=== PATIENT | male | born 1955 | race Caucasian/White ===

== ENCOUNTER 2021-09-12 03:08 | Inpatient (IN) | payer MEDICAID ==
[~2021-09-12] VITALS: Ht 172.7 cm; Wt 61.7 kg
[2021-09-12] VITALS (22 sets, daily range): BP systolic 87–160
--- NOTE | 2021-09-12 03:12 | NUR ---
Placed in room 1 . Placed on gis application developer, blood pressure machine and pulse oximeter. To gown for exam. Side rails up. Report given to Florentino ALVARES.
[2021-09-12] MEDS ORDERED: VANCOMYCIN HCL 1,000 MG in NS 250 ML IV ONE (03:15)
[2021-09-12] MEDS ORDERED: NACL 0.9% 2,000 ML IV ONE (03:15)
[2021-09-12] MEDS ORDERED: CEFEPIME 1 GM in D5W 50 ML IV ONE (03:15)
--- NOTE | 2021-09-12 03:18 | NUR ---
DR PIERCE AT PT BEDSIDE ASSESSING
--- NOTE | 2021-09-12 03:18 | NUR ---
ER at bedside examining patient.
[2021-09-12 03:42] LABS: HEMATOCRIT 39.2 % (36-54); HEMOGLOBIN 13.1 g/dL (14.0-18.0); MEAN CORPUSCULAR HEMOGLOBIN 28 pg (27-31)
[2021-09-12] MEDS ORDERED: ACETAMINOPHEN 650 MG SUPP.RECT RC ONE (03:45)
[2021-09-12 03:48] LABS: MEAN CORPUSCULAR HGB CONC 34 % (32-36); MEAN CORPUSCULAR VOLUME 85 fL (79.0-98.0); PLATELET COUNT (AUTO) 201 K/uL (130-430); RED BLOOD CELL COUNT(AUTO) 4.63 MIL/uL (4.2-6.2); WHITE BLOOD COUNT (AUTO) 13.2 K/uL (4.8-10.8)
[2021-09-12] MEDS ORDERED: CEFEPIME 1 GM/VIAL (MAXIPIME) ONE (03:56)
[2021-09-12] MEDS ORDERED: HALOPERIDOL LACTATE 5 MG/ML VIAL IVP ONE (04:00)
[2021-09-12] MEDS ORDERED: LORazepam 2 MG/ML VIAL IVP ONE (04:00)
[2021-09-12] MEDS ORDERED: HALOPERIDOL LACTATE 5 MG/ML VIAL ONE (04:03)
[2021-09-12] MEDS ORDERED: LORazepam 2 MG/ML VIAL ONE (04:05)
[2021-09-12 04:12] LABS: BILIRUBIN,URINE NEGATIVE (NEGATIVE); BLOOD, URINE 2+ (NEGATIVE); CLARITY/URINE CLEAR (CLEAR); COLOR,URINE YELLOW (YELLOW); GLUCOSE,URINE NEGATIVE (NEGATIVE); KETONES,URINE NEGATIVE (NEGATIVE); LEUKOCYTE ESTERASE ,URINE NEGATIVE (NEGATIVE); NITRITE, URINE NEGATIVE (NEGATIVE); PH,URINE 5.5 (5.0-8.0); PROTEIN URINE 1+ (NEGATIVE)
[2021-09-12 04:13] LABS: UROBILINOGEN,URINE >=8 (0.2-1.0)
[2021-09-12 04:19] LABS: ALANINE AMINOTRANSFERASE 30 U/L (12-78); ALBUMIN 1.9 g/dL (3.4-4.8); ANION GAP 3 (5-15); ASPARTATE AMINOTRANSFERASE 30 U/L (10-37); CALCIUM 8.1 mg/dL (8.4-11.0); CHLORIDE 103 mmol/L (98-107); CREATININE 0.71 mg/dL (0.55-1.30); GLUCOSE 136 mg/dL (70-99); POTASSIUM 3.6 mmol/L (3.5-5.1); SODIUM SERUM 135 mmol/L (136-145); TOTAL BILIRUBIN 0.4 mg/dL (0.0-1.0); UREA NITROGEN, BLOOD 21 mg/dL (8-21)
[2021-09-12 04:32] LABS: GFR AFRICAN AMERICAN 144 mL/min (>90)
[2021-09-12 04:34] LABS: BACTERIA,URINE None Seen /HPF (None Seen); WBC,URINE 0-3 /HPF (0-3)
[2021-09-12 04:52] LABS: BAND % (MANUAL) 11 % (0-6); LYMPHOCYTES % (MANUAL) 9 % (20-46); MONOCYTES % (MANUAL) 5 % (0-11)
[2021-09-12 04:57] LABS: BASOPHILS % (MANUAL) 0 % (0-2); EOSINOPHILS % (MANUAL) 0 % (0-7)
[2021-09-12] MEDS ORDERED: VANCOMYCIN HCL 1000 MG/VIAL IV ONE (05:06)
[2021-09-12] MEDS ORDERED: MULT-1117 GT (05:09)
[2021-09-12] MEDS ORDERED: ASCO500T20 GT (05:09)
[2021-09-12] MEDS ORDERED: LORA-259 GT (05:09)
[2021-09-12] MEDS ORDERED: LACT10SO6 GT (05:09)
[2021-09-12] MEDS ORDERED: ONDA-8 GT (05:09)
[2021-09-12] MEDS ORDERED: HYDR-3698 GT (05:09)
[2021-09-12] MEDS ORDERED: AMIN30LI2 GT (05:09)
[2021-09-12] MEDS ORDERED: VITD2000 GT (05:09)
[2021-09-12] MEDS ORDERED: LEVE1000 GT (05:09)
[2021-09-12] MEDS ORDERED: POTA-197 GT (05:09)
[2021-09-12] MEDS ORDERED: KETOROLAC TROMETHAMINE 30 MG VIAL IVP ONE (05:30)
[2021-09-12] MEDS ORDERED: NACL 0.9% 1,000 ML IV SCH (05:45)
--- NOTE | 2021-09-12 06:23 | NUR ---
SPOKE TO DAUGHTER SIMON
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
--- NOTE | 2021-09-12 07:45 | NUR ---
RT NOTES. RN CALLED TO TRANSFER PT FROM ER TO ICU 3. NO DISTRESS NOTED DURING TRANSPORT. AIRWAY PATENT AND SECURE.
--- NOTE | 2021-09-12 08:01 | NUR ---
Patient will be admitted to care of Dr. Kraft. Admitted to ICU unit. Will go to room 3. Belongings list completed. Complete and up to date summary report printed. SBAR report to be given at bedside with opportunity for questions.
[2021-09-12] MEDS ORDERED: NALOXONE HCL 0.4 MG/ML AMP (NARCAN) IVP PRN ×3 (08:15→12:30)
[2021-09-12] MEDS ORDERED: LORazepam 2 MG/ML VIAL IVP PRN (08:15)
[2021-09-12] MEDS ORDERED: DOCUSATE SODIUM 100 MG CAPSULE PO PRN (08:15)
[2021-09-12] MEDS: NACL 0.9% 1,000 ML IV SCH ×3 (08:15→20:31)
[2021-09-12] MEDS ORDERED: MAGNESIUM SULFATE 50 ML IV PRN (08:15)
[2021-09-12] MEDS ORDERED: ZOLPIDEM TARTRATE 5 MG TABLET PO PRN (08:15)
[2021-09-12] MEDS ORDERED: MUPIROCIN 2% TOPICAL OINTMENT 22 GM NS PRN (08:15)
[2021-09-12] MEDS ORDERED: MORPHINE 2 MG/ML INJ. SYRINGE IVP PRN ×2 (08:15)
[2021-09-12] MEDS ORDERED: ONDANSETRON HCL 4 MG/2 ML VIAL IVP PRN (08:15)
[2021-09-12] MEDS ORDERED: ACETAMINOPHEN 325 MG TABLET PO PRN (08:30)
[2021-09-12] MEDS ORDERED: IPRATROPIUM/ALBUTEROL SULFATE 3 ML AMPUL.NEB (DUONEB) INH PRN (09:00)
--- NOTE | 2021-09-12 09:34 | NUR ---
NOTIFIED OF ADMISSION ORDERING PHY: REASON: ARF DIALED: [phone] SPOKE TO: CHARLY
[2021-09-12] MEDS: ENOXAPARIN SODIUM 40 MG/0.4 ML SYRINGE SUBCUT SCH (10:07)
[2021-09-12] MEDS: LACTULOSE 20 GM/30 ML UDC GT SCH (10:07)
[2021-09-12] MEDS: LevETIRAcetam 500 MG/5 ML UDC ORAL LIQUID GT SCH ×2 (10:08→20:30)
--- NOTE | 2021-09-12 10:51 | NUR ---
SPOKE WITH DR MACIAS ADVISED FAMILY STATED NECK WAS NOT SWOLLEN ON SATURDAY AND PT WAS SCHEDULED TO HAVE A CT DUE TO MASS BEHIND LEFT EAR. NECK IS SWOLLEN TODAY. ORDERED ULTRASOUND OF NECK
[2021-09-12] MEDS: PROPOFOL DRIP 100 ML IV PRN ×3 (11:12→21:55)
[2021-09-12] MEDS ORDERED: PROPOFOL DRIP 100 ML IV ONE (11:13)
--- NOTE | 2021-09-12 11:20 | NUR ---
RT NOTES RT WAS CALLED TO ICU TO ASSIST INTUBATION. DR. HEARN INTUBATED WITH A BOUJIE DUE TO DIFFICULT INTUBATION. INTUBATED WITH AN ETT 7.0 @26. WILL CONTINUE TO MONITOR.
--- NOTE | 2021-09-12 11:20 | NUR ---
PT INTUBATED BY DR HEARN 7.0 ET TUBE. 26 AT THE LIP. A/C RR22, TV 500, 100% FI02, PEEP OF 8
[2021-09-12] MEDS: PIPERACILLIN/TAZO 3.375/DEX-IS 50 ML IV SCH ×2 (11:36→17:27)
--- NOTE | 2021-09-12 11:36 | NUR ---
NOTIFIED OF CONSULT ORDERING PHY: REASON FOR CONSULT: SEPSIS, PNA DIALED: [phone] SPOKE TO: JULIET
--- NOTE | 2021-09-12 11:45 | NUR ---
HIGH ALERT NOTE: MORPHINE DRIP DR HEARN IN NURSE'S STATION. ORDERED MORPHINE DRIP AND LEVOPHED.
--- NOTE | 2021-09-12 12:00 | NUR ---
CONSULT WITH DR MALDONADO ORDERED VANCOMYCIN PHARMACY TO DOSE AND AZITHROMYCIN 500MG IV 1 TIME DOSE.
[2021-09-12] MEDS ORDERED: VECURONIUM BROMIDE 10 MG/VIAL (NORCURON) IVP PRN (12:45)
--- NOTE | 2021-09-12 12:45 | NUR ---
RT NOTES RT WAS CALLED TO ICU TO ASSIST DR HEARN IN REPOSITIONING OF ETT. ETT NEEDED ADVANCEMENT AND WAS DONE WITH ASSIST OF BRONCHOSCOPE. ADVANCEMENT WAS DIFFICULT DUE TO PT ANATOMY. CHEST XRAY SHOWS PLACEMENT STILL IN THE SAME PLACE PREVIOUS. DR STATED LONG PT IS GETTING VOLUMES AND SATURATIONS ARE GOOD THEN THE PLACEMENT IS OKAY. Addendum: 09/12/21 at 1527 by Isela Castañeda RT Amended: Links added.
[2021-09-12] MEDS: NOREPINEPHRINE BITARTRATE 8 MG in NS 242 ML IV PRN ×2 (12:47→19:54)
[2021-09-12] MEDS: MORPHINE SULFATE IN 0.9 % NACL 100 ML IV PRN (12:50)
--- NOTE | 2021-09-12 13:00 | NUR ---
RT NOTES. AIRWAY PATENT AND SECURE. ABMU BAG AT BEDSIDE. VENT PLUGGED INTO A RED OUTLET. WILL CONTINUE TO MONITOR Addendum: 09/12/21 at 1527 by Isela Castañeda RT Amended: Links added.
--- NOTE | 2021-09-12 14:23 | NUR ---
1350 STOMA LEAKING AIR. PLACED GUAZE AND FOAM DRESSING ON TOP. RN AWARE. Addendum: 09/12/21 at 1426 by Claritza Vasquez RT Amended: Links added.
[2021-09-12] MEDS ORDERED: ETOMIDATE 20 MG/ 10 ML VIAL (AMIDATE) IVP ONE (14:30)
[2021-09-12] MEDS ORDERED: ROCURONIUM BROMIDE 10 MG/ML (ZEMURON) IV ONE (14:30)
--- NOTE | 2021-09-12 16:15 | NUR ---
SPOKE WITH DR HEARN ADVISED OS MOST RECENT CHEST X-RAY RESULTS. Addendum: 09/12/21 at 1618 by Akanksha Hartman RN *OF
[2021-09-12] MEDS ORDERED: VANCOMYCIN HCL 1,000 MG in NS 250 ML IV SCH (18:00)
--- NOTE | 2021-09-12 19:07 | NUR ---
OPENING NOTES: RECEIVED BEDSIDE REPORT FROM RANCHO. PATIENT IS SEDATED AND INTUBATED TODAY. VENT SETTING ARE RESP 22, TV 500, FIO2 90%, PEEP 5. PATIENT HAS L AC 18G, R FOREARM 18G, AND PICC MATTHEW 2 LUMEN. MORPHINE RUNNING AT 4, LEVOPHED 0.31, PROPOFOL 40 AND NS 80. PATIENT HAS A NGUYEN AND DAYSHIFT GOT 1500 ML. PATIENT HAS A MASS BEHIND THE LEFT EAT AND HAS SWELLING AROUND NECK, CT SCAN IS SCHEDULED FOR TOMORROW. PATIENT HAS NO SKIN ISSUES. BED IS AT THE LOWEST LEVEL, 3 SIDE RAILS UP, BRAKES ARE LOCKED. DAUGHTER WAS AT THE BEDSIDE AND ALL QUESTION ANSWERED.
[2021-09-12] MEDS: VANCOMYCIN HCL 1,000 MG in NS 250 ML IV SCH (20:10)
[2021-09-12] MEDS ORDERED: AZITHROMYCIN 500 MG in NS 250 ML IV ONE (21:00)
[2021-09-13] VITALS (33 sets, daily range): BP systolic 87–156
[2021-09-13] MEDS: PIPERACILLIN/TAZO 3.375/DEX-IS 50 ML IV SCH ×5 (00:09→23:57)
[2021-09-13 02:32] LABS: CALCIUM 7.7 mg/dL (8.4-11.0); CREATININE 0.68 mg/dL (0.55-1.30); POTASSIUM 3.3 mmol/L (3.5-5.1)
[2021-09-13 02:37] LABS: EOSINOPHILS % (AUTO) 0.1 % (0.0-4.0); HEMOGLOBIN 10.8 g/dL (14.0-18.0); MEAN CORPUSCULAR HEMOGLOBIN 28 pg (27-31); MEAN CORPUSCULAR HGB CONC 33 % (32-36); MEAN CORPUSCULAR VOLUME 85 fL (79.0-98.0); MONOCYTES # (AUTO) 0.4 K/uL (0.0-1.0); RED BLOOD CELL COUNT(AUTO) 3.88 MIL/uL (4.2-6.2)
[2021-09-13] MEDS: POTASSIUM CHLORIDE 20 MEQ TAB.PRT.SR PO PRN ×3 (02:40→09:45)
[2021-09-13 02:50] LABS: LYMPHOCYTES # (AUTO) 0.7 K/uL (1.0-5.5); LYMPHOCYTES % (AUTO) 4.2 % (20.5-51.5); MONOCYTES % (AUTO) 2.3 % (1.7-9.3); NEUTROPHILS # (AUTO) 16.1 K/uL (1.8-7.7); NEUTROPHILS % (AUTO) 93.4 % (40.0-70.0); PLATELET COUNT (AUTO) 184 K/uL (130-430); RED CELL DISTRIBUTION WIDTH 14.8 % (9.0-15.0); WHITE BLOOD COUNT (AUTO) 17.2 K/uL (4.8-10.8)
[2021-09-13] MEDS: PROPOFOL DRIP 100 ML IV PRN ×3 (03:13→16:33)
[2021-09-13] MEDS: ACETAMINOPHEN 325 MG TABLET PO PRN ×2 (04:38→05:47)
[2021-09-13] MEDS: NOREPINEPHRINE BITARTRATE 8 MG in NS 242 ML IV PRN ×2 (05:34→08:33)
[2021-09-13] MEDS: MORPHINE SULFATE IN 0.9 % NACL 100 ML IV PRN ×2 (06:43→23:24)
--- NOTE | 2021-09-13 07:20 | NUR ---
OPENING NOTE: REPORT RC'VD FROM OUTGOING NOC RN, ALL CARES ASSUMED.
--- NOTE | 2021-09-13 07:33 | NUR ---
RT NOTES Per titration order, FIO2 to 0.80. Rn made aware. Will monitor pt.
--- NOTE | 2021-09-13 07:55 | NUR ---
VERBAL CONSENT OBTAINED FROM DAUGHTER SIMON OVER THE PHONE FOR CT WITH CONTRAST OF NECK, CONSENT WITNESSED BY SECOND RN.
[2021-09-13] MEDS ORDERED: IOHEXOL 350 mgI/mL, 150 ML INFUS..BTL IV ONE (08:06)
[2021-09-13] MEDS: ENOXAPARIN SODIUM 40 MG/0.4 ML SYRINGE SUBCUT SCH (08:12)
[2021-09-13] MEDS: LACTULOSE 20 GM/30 ML UDC GT SCH (08:12)
[2021-09-13] MEDS: LevETIRAcetam 500 MG/5 ML UDC ORAL LIQUID GT SCH ×2 (08:13→21:34)
[2021-09-13] MEDS: VANCOMYCIN HCL 1,000 MG in NS 250 ML IV SCH ×2 (08:13→21:34)
--- NOTE | 2021-09-13 08:30 | NUR ---
PATIENT TAKEN TO CT FOR IMAGING, PLACED ONTO PORTABLE MONITOR AND RT AT BEDSIDE
--- NOTE | 2021-09-13 08:45 | NUR ---
RT NOTES Transported pt to and from Ct with Rn and sales service technician. Pt. was bagged with 100% O2 with PEEP valve set to 8 via resus. bag to ETT. Once in CT and back in the unit, pt was placed on the vent. with same settings. Pt maintained sat @100% throughout procedure. A/w remains secure/patent.
--- NOTE | 2021-09-13 08:50 | NUR ---
PATIENT RETURNED FROM IMAGING, STABLE IN NO ACUTE DISTRESS AND OR DISCOMFORT.
--- NOTE | 2021-09-13 09:44 | NUR ---
POTASSIUM REPLACED WITH 40 MeQ PER ORDER
--- NOTE | 2021-09-13 09:55 | NUR ---
RT NOTES Per titration order, FIO2 to 0.80. Rn made aware. Will monitor pt. Addendum: 09/13/21 at 1036 by rPincess Validvia RT @0955 FIO2 to 0.70
--- NOTE | 2021-09-13 10:20 | NUR ---
FAMILY AT BEDSIDE, UPDATES GIVEN AND ALL QUESTIONS ANSWERED.
[2021-09-13] MEDS ORDERED: MUPIROCIN 2% TOPICAL OINTMENT 22 GM NS ONE (10:45)
--- NOTE | 2021-09-13 11:59 | NUR ---
Dietitian Recommendations * Vital AF 1.2 at 50 ml/hr (goal rate) via GT Provides (w/ current propofol infusion rate): 1900 kcal/day, 90 gm protein/day, and 973 ml free water/day Meets (w/ current propofol infusion rate): 98% of estimated caloric needs and 83% of lower end of estimated protein needs * Continue NS IV at 100 ml/hr (2400 ml/day) * If NS IV is D/C, initiate Free Water Flush: 250 ml Q6h via GT Provides: 1973 ml/day combined w/ TF rec Meets 104% of estimated fluid needs w/ TF rec LP, MS, RD Please refer to Nutrition Assessment for details. Addendum: 09/13/21 at [address] Amended: Links added. Addendum: 09/13/21 at [address] PLEASE DISREGARD NOTE AND SEE CORRECTED NOTE DIETITIAN RECOMMENDATION 09/13 1322.
--- NOTE | 2021-09-13 13:22 | NUR ---
Dietitian Recommendations * Vital AF 1.2 bolus feeds 200 ml Q4h via GT Provides (w/ current propofol infusion rate): 1900 kcal/day, 90 gm protein/day, and 973 ml free water/day Meets (w/ current propofol infusion rate): 102% of estimated caloric needs and 83% of lower end of estimated protein needs * Continue NS IV at 100 ml/hr (2400 ml/day) * If NS IV is D/C, initiate Free Water Flush: 250 ml Q6h via GT Provides: 1973 ml/day combined w/ TF rec Meets 104% of estimated fluid needs w/ TF rec LP, MS, RD Please refer to Nutrition Assessment for details. Addendum: 09/13/21 at [address] Amended: Links added.
--- NOTE | 2021-09-13 13:44 | NUR ---
RT NOTES FIO2 TO 0.50. RN MADE AWARE. WILL MONITOR PT.
--- NOTE | 2021-09-13 13:58 | NUR ---
DR. ROY PLACED ORDERS FOR EEG, EEG HAS BEEN SCHEDULED FOR 09.14.2021 AT 0900. Addendum: 09/13/21 at 1359 by [facility] Three english composition teacher WRONG CHART
--- NOTE | 2021-09-13 13:59 | NUR ---
DR. HEARN MAKING ROUNDS, BEDSIDE REPORT GIVEN. MD TO REVIEW CHART AND PLACE ORDERS.
--- NOTE | 2021-09-13 14:00 | NUR ---
RT NOTES Per RN, Dr Carlos will not advance ETT, will have pt re-trached.
--- NOTE | 2021-09-13 14:01 | NUR ---
PER PRIMARY CONSULT PLACED FOR SURGICAL CONSULT.
--- NOTE | 2021-09-13 14:09 | NUR ---
Called Angelica Donovan with a consult, spoke with Princess from doctors office
[2021-09-13] MEDS: NACL 0.9% 1,000 ML IV SCH (14:28)
--- NOTE | 2021-09-13 14:28 | NUR ---
SPOKE WITH DR. JUSITNE MD AWARE OF CONSULT AND WILL SCHEDULE PATIENT FOR TRACH PLACEMENT.
--- NOTE | 2021-09-13 15:50 | NUR ---
RT NOTES FIO2 TO 0.40. RN MADE AWARE. WILL MONITOR PT.
[2021-09-13] MEDS: NOREPINEPHRINE BITARTRATE 16 MG in NS 234 ML IV PRN (16:33)
--- NOTE | 2021-09-13 17:55 | NUR ---
RN ROUNDS: PATIENT REPOSITIONED USING PILLOW SUPPORT, HEELS FLOATING, NEW GOWN AND LINENS APPLIED, ORAL CARE PROVIDED. PATIENT TOLERATED CARES WELL WITH NO SIGNS OF DISTRESS AND OR DISCOMFORT. BED LOW AND LOCKED FOR SAFETY.
--- NOTE | 2021-09-13 17:57 | NUR ---
NGUYEN CARE PROVIDED WITH CHG WIPES
--- NOTE | 2021-09-13 19:15 | NUR ---
change of shift.pt.presents isolation status.contact;mrsa nares.pt.presents ett;#7.lipline;25cm.pt.presents picc line:location: rt.bicept intact.iv fluids/drips;diprivan:13mcg/kg/min:rate:13ml/hr.levophed:13mcg/kg/min:rate:13ml/hr.ms;6mg/hr =6ml/hr. g-tube intact g-tube feed bolus:400ml/4hrs.biggs cath intact;patent.ett/vent;vent settings;tv;500,fio2%:40%,a/c;22, peep:8.call light w/in access of the pt.
--- NOTE | 2021-09-13 20:00 | NUR ---
pt.assessed.v/s assessed values note b/p status.ett intact.i have attended to the oral/ett care/suction.02-sat%=98%. picc line intact iv fluids/drips;diprivan,levophed,ms infusing.per flacc pain mgx pt.absent facial grimaces/body posturing. pt.assessed for cleanliness.pt.repositioned.biggs cath intact.call light placed w/in access of the pt.
[2021-09-13] MEDS: MUPIROCIN 2% TOPICAL OINTMENT 22 GM NS SCH (21:00)
--- NOTE | 2021-09-13 21:00 | NUR ---
2100p medications administered.administered via the g-tube.g-tube flushed w/out resistance.per flacc pain mgx pt.absent facial grimaces/body posturing.v/s values wnl.
[2021-09-13] MEDS: AZITHROMYCIN 250 MG in NS 250 ML IV SCH (21:36)
--- NOTE | 2021-09-13 22:00 | NUR ---
pt.assessed.v/s assessed values wnl.ett intact.i have attended to the ett/oral care/suction.02-sat%=98%.picc line intact iv fluids/drips;diprivan,levophed.ms infusing.g-tube intact.biggs cath intact;patent.per flacc pain mgx pt.absent facial grimaces/body posturing.pt.assessed for cleanliness.pt.repositioned.call light placed w/in access of the pt.
[2021-09-14] VITALS (31 sets, daily range): BP systolic 99–174
--- NOTE | 2021-09-14 | NUR ---
pt.assessed.v/s assessed values wnl.note b/p status.ett intact.i have attended to the oral/ett care/suction.02-sat%=98%. picc line intact iv fluids/drip;diprivan,levophed,ms infusing.g-tube intact.per flacc pain mgx pt.absent facial grimaces/body posturing.pt.assessed for cleanliness.pt.repositioned.call light placed w/in access of the pt.
[2021-09-14] MEDS: NACL 0.9% 1,000 ML IV SCH (00:15)
--- NOTE | 2021-09-14 02:00 | NUR ---
Pt assessed. Vital signs assessed. ETT in tact. Have attended to oral and ETT care and suction. O2 sat 99%. PICC line in tact. IV fluids/drips diprovan, levofed, MS. Curtis cath in tact/patent. Per flacc pain mgx pt absent of facial gestures/body posturing. Pt assessed for cleanliness. Pt repositioned. Call light placed w/in access of pt.
--- NOTE | 2021-09-14 04:00 | NUR ---
pt.assessed.v/s assessed note b/p status.ett intact.i have attended to the oral/ett care/suction.o2-sat%=98%.picc line intact; iv fluids/drips;diprivan,levophed,ms infusing.g-tube intact.biggs cath intact;patent.per flacc pain mgx pt.absent facial grimaces/body posturing.pt.assessed for cleanliness.pt.repositioned.call light placed w/in access of the pt.
[2021-09-14] MEDS: PROPOFOL DRIP 100 ML IV PRN ×2 (04:50→07:41)
[2021-09-14] MEDS: PIPERACILLIN/TAZO 3.375/DEX-IS 50 ML IV SCH ×3 (05:25→17:05)
--- NOTE | 2021-09-14 06:30 | NUR ---
pt.assessed.v/s assessed values wnl.note b/p status.ett intact i have attended to the oral/ett care/suction.o2-sat%=99%. per flacc pain mgx pt.absent facial grimaces/body posturing.iv access intact iv fluids/drip;diprivan,levophed,ms infusing.pt. assessed for cleanliness.pt.repositioned call light placed w/in access of the pt.
[2021-09-14 06:44] LABS: BASOPHILS % (AUTO) 0.2 % (0.0-2.0); EOSINOPHILS # (AUTO) 0.2 K/uL (0.0-0.4); EOSINOPHILS % (AUTO) 0.6 % (0.0-4.0); HEMATOCRIT 30.3 % (36-54); LYMPHOCYTES # (AUTO) 1.4 K/uL (1.0-5.5); LYMPHOCYTES % (AUTO) 5.5 % (20.5-51.5); MEAN CORPUSCULAR HEMOGLOBIN 28 pg (27-31); MEAN CORPUSCULAR HGB CONC 33 % (32-36); MEAN CORPUSCULAR VOLUME 86 fL (79.0-98.0); MONOCYTES # (AUTO) 0.6 K/uL (0.0-1.0); MONOCYTES % (AUTO) 2.2 % (1.7-9.3); NEUTROPHILS # (AUTO) 23.4 K/uL (1.8-7.7); PLATELET COUNT (AUTO) 240 K/uL (130-430); RED BLOOD CELL COUNT(AUTO) 3.54 MIL/uL (4.2-6.2); WHITE BLOOD COUNT (AUTO) 25.6 K/uL (4.8-10.8)
--- NOTE | 2021-09-14 07:07 | NUR ---
OPENING NOTE: REPORT RC'VD FROM OUTGOING NOC RN, ALL CARES ASSUMED.
[2021-09-14] MEDS: VANCOMYCIN HCL 1,000 MG in NS 250 ML IV SCH ×2 (07:32→19:04)
[2021-09-14] MEDS: NOREPINEPHRINE BITARTRATE 16 MG in NS 234 ML IV PRN (07:42)
[2021-09-14 08:07] LABS: NEUTROPHILS % (AUTO) 91.5 % (40.0-70.0)
[2021-09-14 08:08] LABS: CALCIUM 8.3 mg/dL (8.4-11.0); CREATININE 0.51 mg/dL (0.55-1.30); POTASSIUM 3.6 mmol/L (3.5-5.1)
[2021-09-14] MEDS: LACTULOSE 20 GM/30 ML UDC GT SCH (08:25)
[2021-09-14] MEDS: LevETIRAcetam 500 MG/5 ML UDC ORAL LIQUID GT SCH ×2 (08:25→20:28)
[2021-09-14] MEDS: ENOXAPARIN SODIUM 40 MG/0.4 ML SYRINGE SUBCUT SCH (08:25)
--- NOTE | 2021-09-14 08:51 | NUR ---
SPOKE WITH DR. MALDONADO OVER PHONE, MD AWARE OF WBC COUNT INCREASE, MD HAS GIVEN VERBAL ORDER TO CXR TO BE DONE NOW. ORDER PLACED AND TRANSCRIBED.
[2021-09-14] MEDS: D5/0.45 NS 1,000 ML IV SCH (08:52)
[2021-09-14] MEDS: MUPIROCIN 2% TOPICAL OINTMENT 22 GM NS SCH ×2 (09:00→20:28)
--- NOTE | 2021-09-14 09:00 | NUR ---
DR. HEARN MAKING ROUNDS, BEDSIDE REPORT GIVEN, TO REVIEW CHART AND PLACE ORDERS
--- NOTE | 2021-09-14 10:00 | NUR ---
CXR DONE AT BEDSIDE
--- NOTE | 2021-09-14 11:23 | NUR ---
Nutrition Consult received 09/14/21 @ 0350 Consult is for low Maicol, immobile patient, on vent. RD completed NC and RD notification on 08/15. RD aware of pt status and will continue to f/u with pt. Next RD visit scheduled for 09/16/21. Please refer to most recent Nutrition Assessment for more detailed information. Thanks! HILL, SUDHIR, PENG Addendum: 09/14/21 at [address] Note: RD assessment was completed on *09/14, linked note was completed by Adri Cage
--- NOTE | 2021-09-14 11:26 | NUR ---
DR. OROZCO MADE AWARE OF CONSULT, TO COME SEE PATIENT AT BEDSIDE.
--- NOTE | 2021-09-14 11:35 | NUR ---
RT NOTES PEEP was changed to [address] atkins.
--- NOTE | 2021-09-14 14:52 | NUR ---
NGUYEN CARE PROVIDED WITH CHG WIPES
[2021-09-14] MEDS: MORPHINE SULFATE IN 0.9 % NACL 100 ML IV PRN (15:07)
--- NOTE | 2021-09-14 18:56 | NUR ---
CLOSING NOTE: REPORT GIVEN TO NOC RN, ALL CARES ENDORSED.
[2021-09-14] MEDS ORDERED: AZITHROMYCIN 500 MG/VIAL (ZITHROMAX) IV ONE (20:24)
[2021-09-14] MEDS: AZITHROMYCIN 250 MG in NS 250 ML IV SCH (20:29)
[2021-09-15] VITALS (33 sets, daily range): BP systolic 107–166
[2021-09-15] MEDS: PIPERACILLIN/TAZO 3.375/DEX-IS 50 ML IV SCH ×4 (00:16→17:26)
[2021-09-15] MEDS: PROPOFOL DRIP 100 ML IV PRN (02:23)
[2021-09-15] MEDS: D5/0.45 NS 1,000 ML IV SCH (02:24)
--- NOTE | 2021-09-15 05:00 | NUR ---
REMAINS VERY CRITICAL ON 3 PRESSORS ALL MAX DOSE,,TURN AND REPOSITION TO COMFORT, SACROCOCCYX WITH UNSTAGEABLE PHOTO TAKEN.,CXR TAKEN ETT PULEED OUT 2CM OUT ETT SIZE 7.5 AT 22 LP. ABG COMPENSATED METABOLIC ACIDOSIS,FIO2-DOWN TO 70% Addendum: 09/15/21 at 0656 by Jimmie Chavez RN ERROR CHARTED ON WRONG PATIENT
[2021-09-15 06:25] LABS: BASOPHILS % (AUTO) 0.4 % (0.0-2.0); EOSINOPHILS # (AUTO) 0.2 K/uL (0.0-0.4); HEMATOCRIT 30.7 % (36-54); HEMOGLOBIN 10.1 g/dL (14.0-18.0); LYMPHOCYTES # (AUTO) 1.3 K/uL (1.0-5.5); LYMPHOCYTES % (AUTO) 11.3 % (20.5-51.5); MEAN CORPUSCULAR HEMOGLOBIN 28 pg (27-31); MEAN CORPUSCULAR HGB CONC 33 % (32-36); MEAN CORPUSCULAR VOLUME 86 fL (79.0-98.0); MONOCYTES # (AUTO) 0.4 K/uL (0.0-1.0); NEUTROPHILS # (AUTO) 9.7 K/uL (1.8-7.7); NEUTROPHILS % (AUTO) 83.3 % (40.0-70.0); PLATELET COUNT (AUTO) 185 K/uL (130-430); RED BLOOD CELL COUNT(AUTO) 3.57 MIL/uL (4.2-6.2); RED CELL DISTRIBUTION WIDTH 15.4 % (9.0-15.0); WHITE BLOOD COUNT (AUTO) 11.6 K/uL (4.8-10.8)
--- NOTE | 2021-09-15 06:32 | NUR ---
REMAINS HYPOTENSIVE. EFRA CORTES CALL. Addendum: 09/15/21 at 0656 by Jimmie Chavez RN ERROR CHARTED ON WRONG PATIENT
[2021-09-15 06:52] LABS: CREATININE 0.5 mg/dL (0.55-1.30); POTASSIUM 3.1 mmol/L (3.5-5.1)
[2021-09-15] MEDS: VANCOMYCIN HCL 1,000 MG in NS 250 ML IV SCH ×2 (08:11→19:55)
[2021-09-15] MEDS: LevETIRAcetam 500 MG/5 ML UDC ORAL LIQUID GT SCH ×2 (08:12→21:39)
[2021-09-15] MEDS: LACTULOSE 20 GM/30 ML UDC GT SCH (08:13)
[2021-09-15] MEDS: ENOXAPARIN SODIUM 40 MG/0.4 ML SYRINGE SUBCUT SCH (08:14)
--- NOTE | 2021-09-15 08:45 | NUR ---
RT NOTES Leak cont. to be observed intermittently from a/w, especially when pt's neck is hyperextended. Pt. is schedule for trach today per RN.
[2021-09-15] MEDS: MUPIROCIN 2% TOPICAL OINTMENT 22 GM NS SCH ×2 (09:00→21:40)
[2021-09-15] MEDS: MORPHINE SULFATE IN 0.9 % NACL 100 ML IV PRN (10:15)
[2021-09-15] MEDS: POTASSIUM CHLORIDE 20 MEQ TAB.PRT.SR PO PRN (10:45)
--- NOTE | 2021-09-15 15:13 | NUR ---
Wound Evaluation: Wound Consult ordered for Low Maicol Score. Patient evaluated for a low Maicol score of 10. Patient was sedated and received in a Angelique Bed with an Isoflex ESTEBAN mattress. Patient needs to be turned in bed. Skin assessment: 1. Sacral-Coccygeal area: Erythema, present on admission. Recommend: Cover site with sacral foam dressing for protection. If soiled cleanse involved areas with mild soap and water. Apply moisture barrier cream around foam dressing. Perform dressing change daily and as needed for dressing soiling or dislodgment. Perform barrier cream application 4 times daily and as needed for soiling. 2. Right Heel: Erythema, present on admission. Recommend: Cover bilateral heels with foam dressings for protection. Elevate, offload and float bilateral heels with 1 pillow lengthwise under each extremity at all times. Recommend reposition patient side to side only every 2 hours with pillow support. Elevate, off-load and float bilateral heels with pillows. Offload pressure areas with pillows for pressure re-distribution. Perform skin care and monitor skin integrity Q shift. Use moisture barrier cream on moisture susceptible areas QID and PRN for soiling. Initiate low air-loss therapy by adding an air pump to the mattress.
[2021-09-15] MEDS ORDERED: PROPOFOL 200MG/ 20ML VIAL (DIPRIVAN) IV ONE (15:20)
[2021-09-15] MEDS ORDERED: NS IRRIG SOLN 1000 ML IR ONE (15:20)
[2021-09-15] MEDS ORDERED: NS 1000 ML IV.SOLN IV ONE (15:20)
[2021-09-15] MEDS ORDERED: LIDOCAINE 1% 10 MG/ML, 20 ML MDV ONE (15:20)
--- NOTE | 2021-09-15 15:29 | NUR ---
Patient off unit to surgery accompanied by RT, RN, Dr. Kaplan, and PA. Consent forms signed, pre-op checklist done.
[2021-09-15] MEDS ORDERED: D5W 1,000 ML IV SCH (16:45)
--- NOTE | 2021-09-15 19:05 | NUR ---
assumed care, recd report iris Levy RN for continuity of care.Initial assessment completed. see assessment sheet.
[2021-09-15] MEDS ORDERED: AZITHROMYCIN 500 MG/VIAL (ZITHROMAX) IV ONE (20:50)
[2021-09-15] MEDS: AZITHROMYCIN 250 MG in NS 250 ML IV SCH (21:40)
[2021-09-16] VITALS (30 sets, daily range): BP systolic 102–144
[2021-09-16] MEDS: PIPERACILLIN/TAZO 3.375/DEX-IS 50 ML IV SCH ×4 (01:12→23:54)
--- NOTE | 2021-09-16 02:00 | NUR ---
off levophed and morphine wean to 1 mg/hr.
--- NOTE | 2021-09-16 03:30 | NUR ---
Morning care done, CHG bath given,oral care, pericare and trache care and skin care done, turn and reposition to comfort.done, suctioned secretions moderate thick red bloody to stained pink secretions.continue care.
[2021-09-16] MEDS ORDERED: MEROPENEM 1 GM VIAL IV ONE (04:39)
--- NOTE | 2021-09-16 05:30 | NUR ---
s/B Dr. wu no new orders made. Addendum: 09/16/21 at 0733 by Jimmie Chavez RN Made him aware sputum c/s results came back positive for E.coli and ESBL no new orders.
[2021-09-16 07:18] LABS: BASOPHILS % (AUTO) 0.3 % (0.0-2.0); EOSINOPHILS # (AUTO) 0.1 K/uL (0.0-0.4); EOSINOPHILS % (AUTO) 0.9 % (0.0-4.0); HEMATOCRIT 27.6 % (36-54); HEMOGLOBIN 9.5 g/dL (14.0-18.0); LYMPHOCYTES # (AUTO) 0.8 K/uL (1.0-5.5); LYMPHOCYTES % (AUTO) 10.8 % (20.5-51.5); MEAN CORPUSCULAR HEMOGLOBIN 29 pg (27-31); MEAN CORPUSCULAR HGB CONC 34 % (32-36); MEAN CORPUSCULAR VOLUME 84 fL (79.0-98.0); MONOCYTES # (AUTO) 0.3 K/uL (0.0-1.0); MONOCYTES % (AUTO) 4.2 % (1.7-9.3); NEUTROPHILS # (AUTO) 6.5 K/uL (1.8-7.7); NEUTROPHILS % (AUTO) 83.8 % (40.0-70.0); PLATELET COUNT (AUTO) 212 K/uL (130-430); RED BLOOD CELL COUNT(AUTO) 3.29 MIL/uL (4.2-6.2); RED CELL DISTRIBUTION WIDTH 15.1 % (9.0-15.0); WHITE BLOOD COUNT (AUTO) 7.8 K/uL (4.8-10.8)
[2021-09-16 07:28] LABS: CALCIUM 7.3 mg/dL (8.4-11.0); CREATININE 0.46 mg/dL (0.55-1.30)
--- NOTE | 2021-09-16 07:33 | NUR ---
reort given to Harjeet ALVARES for continuity of care day shift
[2021-09-16] MEDS: VANCOMYCIN HCL 1,000 MG in NS 250 ML IV SCH ×2 (08:38→21:16)
[2021-09-16 09:02] LABS: POTASSIUM 2.5 mmol/L (3.5-5.1)
[2021-09-16] MEDS: LACTULOSE 20 GM/30 ML UDC GT SCH (09:17)
[2021-09-16] MEDS: POTASSIUM CHLORIDE 20 MEQ TAB.PRT.SR PO PRN (09:18)
[2021-09-16] MEDS: MUPIROCIN 2% TOPICAL OINTMENT 22 GM NS SCH ×2 (09:19→21:15)
[2021-09-16] MEDS: ENOXAPARIN SODIUM 40 MG/0.4 ML SYRINGE SUBCUT SCH (09:20)
[2021-09-16] MEDS: LevETIRAcetam 500 MG/5 ML UDC ORAL LIQUID GT SCH ×2 (09:20→21:14)
[2021-09-16] MEDS: KCL 40 mEq in D5W 1000 mL 1,000 ML IV SCH (11:00)
--- NOTE | 2021-09-16 13:15 | NUR ---
Nutrition F/U Admitting Diagnosis Acute respiratory failure Reviewed Pertinent Medical/Surgical Hx Medical Record Patient Primary RN Medical History Comment: PMH: TBI, seizure disorder, bedbound, chronic dysphagia/GT, respiratory failure, and sacral ulcerations per physician notes Pt also found w/ sepsis, aspiration pneumonia, possible UTI, severe malnutrition, and lactic acidosis per physician notes Per RD chart review 09/16: pt is s/p tracheostomy 09/15 Subjective Information: RD rounded to ICU this afternoon. Witnessed TF infusing via GT Vital AF 1.2 at 50 ml/hr w/ 31 ml infused, providing 37 kcal. No active TF order at time of RD visit. Primary RN reported that pt's TF was resumed after trach placement yesterday. He stated pt appears to be tolerating TF well; no BM yet today. Per EMR review, pt is trach to vent; obtunded; abd is soft and non-distended w/ hypoactive bowel sounds; LBM x1 09/13 (3 days ago). Current TF prescription remains adequate/appropriate. Current Diet Order/Nutrition Support: NPO x1 day Patient/Significant Other Unble To Verbalize Education Provided Not Indicated Pertinent Medications: vancomycin, morphine, propofol at 13.064 ml/hr (345 kcal/day), lactulose, levophed, piperacillin/tazobactam, lovenox, k-dur, KCl/NS at 60 ml/hr Pertinent Labs: WBC 7.8 WNL, K 2.5 L, HgA1c 5.4 WNL, BG 98 WNL, Na 147 H, CRE 0.46 L Height (Feet) 5 feet Height (Inches) 8.00 inches Weight (Pounds) 136 pounds -- stable since 09/13 Patient Weight 61.689 kg Body Mass Index 20.68 kg/m2 (normal) Usual Weight 165 lbs %UBW 82 %IBW 85 Warriors Mark/Adjusted Body Weight 160#/72.7 kg Recent Weight Change Yes - 29# wt loss/18% wt change within 4 mo Weight Status Appropriate Difficulty With: Chewing Swallowing Food Allergies No Usual Diet At Home Continuous and bolus feeds over the span of 1.5 mo per daughter Skin Integrity Comment: Maicol scale: 11 -- no PIs noted per EMR review NEW Estimated Energy Expenditure (kcals/day) 1678 (PSU 2002b d/t critical illness, trach/vent; Ve: 11.3, Tmax: 37.2'C) Estimated Protein Required (g/day) 109-145 (1.5-2 gm/kg IBW d/t sepsis, critical illness, wt gain promotion) NEW Estimated Fluid Required (l/day) 1.7 (1 ml/kcal/day for maintenance) Problem/Etiology/Signs/Symptoms Increased nutritional needs R/T metabolic demands AEB estimated nutritional requirements for sepsis. *Ongoing Risk for malnutrition R/T unintentional wt loss AEB 29# wt loss/18% wt change within 4 mo. *Ongoing Expected Outcomes/Goals - Monitor provision of EN support w/ goal of pt meeting >80% of estimated nutritional needs, labs trending WNL, normal GI function, and skin integrity/wt maintenance Dietitian Recommendations * Vital AF 1.2 at 50 ml/hr (goal rate), Free Water Flush: 250 ml Q6h via GT Provides (w/ current propofol infusion rate): 1785 kcal/day, 90 gm protein/day, and 1973 ml free water/day Meets (w/ current propofol infusion rate): 106% of estimated caloric needs, 83% of lower end of estimated protein needs, and 116% of estimated fluid needs Follow Up High Risk: F/U in 2-3 days
--- NOTE | 2021-09-16 13:25 | NUR ---
Dietitian Recommendations * Vital AF 1.2 at 50 ml/hr (goal rate), Free Water Flush: 250 ml Q6h via GT Provides (w/ current propofol infusion rate): 1785 kcal/day, 90 gm protein/day, and 1973 ml free water/day Meets (w/ current propofol infusion rate): 106% of estimated caloric needs, 83% of lower end of estimated protein needs, and 116% of estimated fluid needs LP, MS, RD Please refer to Nutrition F/U for details.
--- NOTE | 2021-09-16 21:12 | NUR ---
TRACHEAL SUCTION upright position moderate amount of thick bates sputum RESPIRATIONS REMAIN REGULAR also unlabored continue to monitor / .
[2021-09-16] MEDS: AZITHROMYCIN 250 MG in NS 250 ML IV SCH (21:17)
--- NOTE | 2021-09-16 22:37 | NUR ---
Reposition & Turning off loading with pillows comfort measures implemented , no SOB noted also kept clean also dry as needed position change on schedule tolerated / .
[2021-09-17] VITALS (30 sets, daily range): BP systolic 118–159
--- NOTE | 2021-09-17 01:14 | NUR ---
MORPHINE DRIP continued 0.5 MG / HR Respirations Remain Regular also unlabored HOB elevated skin dry warm 02 SAT 96 %
[2021-09-17] MEDS: PIPERACILLIN/TAZO 3.375/DEX-IS 50 ML IV SCH ×3 (06:00→17:25)
[2021-09-17] MEDS: KCL 40 mEq in D5W 1000 mL 1,000 ML IV SCH ×2 (06:00→17:27)
[2021-09-17 07:01] LABS: BASOPHILS % (AUTO) 0.2 % (0.0-2.0); EOSINOPHILS # (AUTO) 0.1 K/uL (0.0-0.4); HEMATOCRIT 28.9 % (36-54); HEMOGLOBIN 9.8 g/dL (14.0-18.0); LYMPHOCYTES # (AUTO) 1.4 K/uL (1.0-5.5); LYMPHOCYTES % (AUTO) 17.1 % (20.5-51.5); MEAN CORPUSCULAR HEMOGLOBIN 29 pg (27-31); MEAN CORPUSCULAR HGB CONC 34 % (32-36); MEAN CORPUSCULAR VOLUME 84 fL (79.0-98.0); MONOCYTES # (AUTO) 0.4 K/uL (0.0-1.0); NEUTROPHILS # (AUTO) 6.2 K/uL (1.8-7.7); NEUTROPHILS % (AUTO) 76.7 % (40.0-70.0); PLATELET COUNT (AUTO) 237 K/uL (130-430); RED BLOOD CELL COUNT(AUTO) 3.43 MIL/uL (4.2-6.2); RED CELL DISTRIBUTION WIDTH 14.7 % (9.0-15.0); WHITE BLOOD COUNT (AUTO) 8.1 K/uL (4.8-10.8)
[2021-09-17 07:51] LABS: CALCIUM 7.3 mg/dL (8.4-11.0); CREATININE 0.42 mg/dL (0.55-1.30)
[2021-09-17] MEDS: VANCOMYCIN HCL 1,000 MG in NS 250 ML IV SCH ×2 (08:18→20:59)
[2021-09-17] MEDS: LevETIRAcetam 500 MG/5 ML UDC ORAL LIQUID GT SCH ×2 (08:31→21:00)
[2021-09-17] MEDS: LACTULOSE 20 GM/30 ML UDC GT SCH (08:32)
[2021-09-17] MEDS: ENOXAPARIN SODIUM 40 MG/0.4 ML SYRINGE SUBCUT SCH (08:32)
[2021-09-17 08:43] LABS: POTASSIUM 2.9 mmol/L (3.5-5.1)
[2021-09-17] MEDS: POTASSIUM CHLORIDE 20 MEQ TAB.PRT.SR PO PRN (09:41)
[2021-09-17] MEDS: MUPIROCIN 2% TOPICAL OINTMENT 22 GM NS SCH ×2 (09:42→21:01)
[2021-09-17] MEDS ORDERED: POTASSIUM CHLORIDE 20 MEQ/PKT PACKET NG ONE (12:30)
[2021-09-17] MEDS: AZITHROMYCIN 250 MG in NS 250 ML IV SCH (21:01)
[2021-09-18] VITALS (33 sets, daily range): BP systolic 118–176
[2021-09-18] MEDS: PIPERACILLIN/TAZO 3.375/DEX-IS 50 ML IV SCH (01:03)
[2021-09-18] MEDS: MEROPENEM 1 GM in NS 100 ML IV SCH ×3 (06:10→23:58)
[2021-09-18 07:38] LABS: CALCIUM 7.1 mg/dL (8.4-11.0); CREATININE 0.5 mg/dL (0.55-1.30); POTASSIUM 3.1 mmol/L (3.5-5.1)
[2021-09-18 07:50] LABS: BASOPHILS % (AUTO) 0.6 % (0.0-2.0); EOSINOPHILS # (AUTO) 0.1 K/uL (0.0-0.4); EOSINOPHILS % (AUTO) 1.6 % (0.0-4.0); HEMATOCRIT 27.2 % (36-54); HEMOGLOBIN 9.3 g/dL (14.0-18.0); LYMPHOCYTES # (AUTO) 1.4 K/uL (1.0-5.5); MEAN CORPUSCULAR HEMOGLOBIN 29 pg (27-31); MEAN CORPUSCULAR HGB CONC 34 % (32-36); MEAN CORPUSCULAR VOLUME 84 fL (79.0-98.0); MONOCYTES # (AUTO) 0.3 K/uL (0.0-1.0); MONOCYTES % (AUTO) 4.1 % (1.7-9.3); NEUTROPHILS # (AUTO) 5.4 K/uL (1.8-7.7); NEUTROPHILS % (AUTO) 74.7 % (40.0-70.0); PLATELET COUNT (AUTO) 275 K/uL (130-430); RED BLOOD CELL COUNT(AUTO) 3.24 MIL/uL (4.2-6.2); RED CELL DISTRIBUTION WIDTH 14.6 % (9.0-15.0); WHITE BLOOD COUNT (AUTO) 7.2 K/uL (4.8-10.8)
[2021-09-18] MEDS: LACTULOSE 20 GM/30 ML UDC GT SCH (09:04)
[2021-09-18] MEDS: VANCOMYCIN HCL 1,000 MG in NS 250 ML IV SCH ×2 (09:04→20:05)
[2021-09-18] MEDS: LevETIRAcetam 500 MG/5 ML UDC ORAL LIQUID GT SCH ×2 (09:05→20:05)
[2021-09-18] MEDS: ENOXAPARIN SODIUM 40 MG/0.4 ML SYRINGE SUBCUT SCH (09:06)
[2021-09-18] MEDS: MUPIROCIN 2% TOPICAL OINTMENT 22 GM NS SCH ×2 (09:09→20:06)
[2021-09-18] MEDS: KCL 40 mEq in D5W 1000 mL 1,000 ML IV SCH (14:09)
[2021-09-18] MEDS: MORPHINE SULFATE IN 0.9 % NACL 100 ML IV PRN (18:17)
--- NOTE | 2021-09-18 19:05 | NUR ---
ASSUMED CARE RECD REPORT FROM BLADIMIR ALVARES FOR CONTINUITY OF CARE.
[2021-09-19] VITALS (8 sets, daily range): BP systolic 106–142
--- NOTE | 2021-09-19 00:48 | NUR ---
DR. ARMANDO GOMES OKAYED TRANSFER OF PT TO TELE AT THIS TIME. WILL CARRY OUT ORDERED.
--- NOTE | 2021-09-19 01:00 | NUR ---
CALLED DR MONDRAGON FOR TRANSFER TO [facility].
--- NOTE | 2021-09-19 01:15 | NUR ---
REPORT GIVEN TO REGGIE ALVARES FOR CONTINUITY OF CARE.TRANSFER VIA BED UNEVENTFUL.
--- NOTE | 2021-09-19 01:33 | NUR ---
RT NOTES TRANSFERRED PT TO [email or web address]. TRANSFERRED WITH 100%FIO2 VIA [facility]BU BAG. PLACE ON VENT WITH CURRENT SETTINGS. NO SOB NOTED. TRACH IS SECURE AND INTACT. Addendum: 09/19/21 at 0209 by Kaleb James RT Amended: Links added.
[2021-09-19] MEDS: KCL 40 mEq in D5W 1000 mL 1,000 ML IV SCH ×2 (04:10→20:35)
[2021-09-19] MEDS: MEROPENEM 1 GM in NS 100 ML IV SCH ×3 (06:27→21:09)
[2021-09-19 07:43] LABS: BASOPHILS % (AUTO) 0.4 % (0.0-2.0); EOSINOPHILS # (AUTO) 0.1 K/uL (0.0-0.4); EOSINOPHILS % (AUTO) 2.4 % (0.0-4.0); HEMATOCRIT 29.5 % (36-54); LYMPHOCYTES # (AUTO) 1.1 K/uL (1.0-5.5); LYMPHOCYTES % (AUTO) 18.2 % (20.5-51.5); MEAN CORPUSCULAR HEMOGLOBIN 28 pg (27-31); MEAN CORPUSCULAR HGB CONC 34 % (32-36); MEAN CORPUSCULAR VOLUME 84 fL (79.0-98.0); MONOCYTES # (AUTO) 0.4 K/uL (0.0-1.0); NEUTROPHILS # (AUTO) 4.3 K/uL (1.8-7.7); PLATELET COUNT (AUTO) 330 K/uL (130-430); RED BLOOD CELL COUNT(AUTO) 3.53 MIL/uL (4.2-6.2); RED CELL DISTRIBUTION WIDTH 14.7 % (9.0-15.0); WHITE BLOOD COUNT (AUTO) 5.9 K/uL (4.8-10.8)
[2021-09-19 08:32] LABS: ALBUMIN 1.2 g/dL (3.4-4.8); CALCIUM 7.4 mg/dL (8.4-11.0); CREATININE 0.51 mg/dL (0.55-1.30); POTASSIUM 3.3 mmol/L (3.5-5.1); TOTAL BILIRUBIN 0.3 mg/dL (0.0-1.0)
[2021-09-19] MEDS: LACTULOSE 20 GM/30 ML UDC GT SCH (10:30)
[2021-09-19] MEDS: ENOXAPARIN SODIUM 40 MG/0.4 ML SYRINGE SUBCUT SCH (10:32)
[2021-09-19] MEDS: LevETIRAcetam 500 MG/5 ML UDC ORAL LIQUID GT SCH ×2 (10:33→21:09)
[2021-09-19] MEDS: VANCOMYCIN HCL 1,000 MG in NS 250 ML IV SCH (10:34)
--- NOTE | 2021-09-19 11:54 | NUR ---
Discharge Planning: DCP faxed pt referral to [facility] [phone] DCP to follow up
[2021-09-19] MEDS: MUPIROCIN 2% TOPICAL OINTMENT 22 GM NS SCH ×2 (15:06→21:00)
[2021-09-19] MEDS: POTASSIUM CHLORIDE 20 MEQ TAB.PRT.SR PO PRN (16:05)
[2021-09-19] MEDS: ACETAMINOPHEN 325 MG TABLET PO PRN (16:05)
--- NOTE | 2021-09-19 19:15 | NUR ---
handoff has been given to Kassy
--- NOTE | 2021-09-19 19:30 | NUR ---
Opening note Received report from day shift. Pt lying in bed, eyes closed. Breathing even and unlabored on vent. No s/s of respiratory distress. MATTHEW midline intact and patent with fluids running at ordered rate. Tube feeding running at ordered rate. Curtis catheter intact draining by gravity. Fall and safety precautions in place with bed in lowest position, bed alarm on, and call light within reach
[2021-09-20] VITALS: BP_SYST 105
--- NOTE | 2021-09-20 00:22 | NUR ---
Rounds Pt lying comfortably in bed. No s/s of acute distress. Fall and safety checks in place
[2021-09-20] MEDS: MEROPENEM 1 GM in NS 100 ML IV SCH ×3 (06:14→21:10)
--- NOTE | 2021-09-20 07:04 | NUR ---
Closing note Pt lying in bed, eyes closed. Breathing even and unlabored on vent. No s/s of respiratory distress. MATTHEW midline intact and patent with fluids running at ordered rate. Tube feeding running at ordered rate. Curtis catheter intact draining by gravity. Fall and safety precautions in place with bed in lowest position, bed alarm on, and call light within reach. All needs met throughout shift.
[2021-09-20 07:59] LABS: BASOPHILS % (AUTO) 0.4 % (0.0-2.0); EOSINOPHILS # (AUTO) 0.1 K/uL (0.0-0.4); EOSINOPHILS % (AUTO) 2.5 % (0.0-4.0); HEMATOCRIT 27.4 % (36-54); HEMOGLOBIN 9.1 g/dL (14.0-18.0); LYMPHOCYTES # (AUTO) 1.2 K/uL (1.0-5.5); LYMPHOCYTES % (AUTO) 24.7 % (20.5-51.5); MEAN CORPUSCULAR HEMOGLOBIN 28 pg (27-31); MEAN CORPUSCULAR HGB CONC 33 % (32-36); MEAN CORPUSCULAR VOLUME 85 fL (79.0-98.0); MONOCYTES # (AUTO) 0.4 K/uL (0.0-1.0); NEUTROPHILS # (AUTO) 3.3 K/uL (1.8-7.7); NEUTROPHILS % (AUTO) 65.4 % (40.0-70.0); PLATELET COUNT (AUTO) 333 K/uL (130-430); RED BLOOD CELL COUNT(AUTO) 3.22 MIL/uL (4.2-6.2); RED CELL DISTRIBUTION WIDTH 15.1 % (9.0-15.0)
[2021-09-20 08:25] VITALS: BP_SYST 110
[2021-09-20] MEDS: ENOXAPARIN SODIUM 40 MG/0.4 ML SYRINGE SUBCUT SCH (09:37)
[2021-09-20] MEDS: LACTULOSE 20 GM/30 ML UDC GT SCH (09:37)
[2021-09-20] MEDS: LevETIRAcetam 500 MG/5 ML UDC ORAL LIQUID GT SCH ×2 (09:39→21:00)
[2021-09-20] MEDS: MUPIROCIN 2% TOPICAL OINTMENT 22 GM NS SCH ×2 (09:42→21:07)
[2021-09-20 10:00] VITALS: BP_SYST 110
[2021-09-20] MEDS: VANCOMYCIN HCL 1,000 MG in NS 250 ML IV SCH ×2 (10:40→21:08)
--- NOTE | 2021-09-20 12:39 | NUR ---
Discharge Planning: DCP faxed pt DC order for [facility] to [facility] F#[phone] and to [facility] P#[phone] F#[phone] DCP to follow up Addendum: 09/20/21 at 1344 by Maryse Washburn RN Per steph [facility] declined due to not contracted with [facility]. Addendum: 09/20/21 at 1636 by Ramona TERRELL DCP faxed pt referral to [facility] [place] for sub acute.
[2021-09-20] MEDS: KCL 40 mEq in D5W 1000 mL 1,000 ML IV SCH (13:15)
--- NOTE | 2021-09-20 13:44 | NUR ---
DISCHARGE PLANNING Order for LTAC eval, barriers: weak criteria & insurance. Called & spoke with dtr Sruthi Oquendo, ph [phone], agreeable with LTAC with preference for [facility]. Informed may not get accepted then plan for subacute. Agrees with plan for subacute. Pt was at [facility](decannulated from trach couple weeks ago at [facility]) now trach replaced and on Vent. Would prefer a different subacute, [facility] or one in [place]. If not accepted or no bed at other subacute would be agreeable with discharge back to [facility]. Updated dc marketing planner.
[2021-09-20 13:56] VITALS: BP_SYST 116
[2021-09-20 16:22] VITALS: BP_SYST 128
--- NOTE | 2021-09-20 16:22 | NUR ---
Nutrition F/U Admitting Diagnosis Acute respiratory failure Reviewed Pertinent Medical/Surgical Hx Medical Record Medical History Comment: PMH: TBI, seizure disorder, bedbound, chronic dysphagia/GT, respiratory failure, and sacral ulcerations per physician notes - Pt also found w/ sepsis, aspiration pneumonia, possible UTI, severe malnutrition, and lactic acidosis per physician notes - Per RD chart review 09/16: pt is s/p tracheostomy 09/15 Subjective Information: Patient seen at bedside intubated and sedated, trach to vent with TF running @ 50mL goal rate. Patient has been on vent since 09/13. Per MD notes, patient is off pressors with mild sedation. Per EMR, patient tolerating TF with GRV noted at 12mL, tolerating well; 2 x BM documented 09/20. Patient receiving IVF with D5 and K @ 60mL. CM working on plans to d/c patient to LTC or Subacute facility. Current Diet Order/Nutrition Support: NPO/TF x 6 days Vital AF @ 50mL x 24 hr: Provides 1400 kcal, 90g protein, 973mL FW Patient/Significant Other Unble To Verbalize Education Provided Not Indicated Pertinent Medications: abx, morphine, lactulose, keppra, k-dur, KCl/NS at 60 ml/hr Pertinent Labs: RBC 3.2 L, K 3.3 L (improving), H/H 10/19/26.4 L, HgA1c 5.4 WNL, Na WNL (improved), CRE 0.51 L, Ca 7.4 L Height (Feet) 5 feet Height (Inches) 8.00 inches Weight (Pounds) 136 pounds -- stable since 09/13 Patient Weight 61.689 kg Body Mass Index 20.68 kg/m2 (normal) Usual Weight 165 lbs %UBW 82 %IBW 85 [place]/Adjusted Body Weight 160#/72.7 kg Recent Weight Change Yes - 29# wt loss/18% wt change within 4 mo Weight Status Appropriate Difficulty With: Chewing Swallowing Food Allergies nkfa Usual Diet At Home Continuous and bolus feeds over the span of 1.5 mo per daughter Skin Integrity Comment: Maicol scale: 10 -- coccyx skin tear; heel erythema NEW Estimated Energy Expenditure (kcals/day) 1678 (PSU 2002b d/t critical illness, trach/vent; Ve: 11.3, Tmax: 37.2'C) Estimated Protein Required (g/day) 109-145 (1.5-2 gm/kg IBW d/t sepsis, critical illness, wt gain promotion) NEW Estimated Fluid Required (l/day) 1.7 (1 ml/kcal/day for maintenance) Problem/Etiology/Signs/Symptoms -Inadequate oral intake r/t discontinued propofol a/e/b current TF regimen meets ~83% kcal and 82% lower range of protein needs. *New -Increased nutritional needs R/T metabolic demands AEB estimated nutritional requirements for trach/vent. *Ongoing -Risk for malnutrition R/T unintentional wt loss AEB 29# wt loss/18% wt change within 4 mo. *Ongoing Expected Outcomes/Goals - Monitor provision of EN support w/ goal of pt meeting >80% of estimated nutritional needs, labs trending WNL, normal GI function, and skin integrity/wt maintenance Dietitian Recommendations * Adjust TF regimen slightly: Vital AF 1.2 at 60 ml/hr (goal rate), Free Water Flush: 250 ml Q6h via GT Provides 1728 kcal/day, 108 gm protein/day, and 1917 ml free water/day Meets: 103% of estimated caloric needs, 99% of lower end of estimated protein needs, and 112% of estimated fluid needs Follow Up High Risk: F/U in 2-3 days 09/22-09/23
--- NOTE | 2021-09-20 16:27 | NUR ---
Dietitian Recommendations * Adjust TF regimen slightly: Vital AF 1.2 at 60 ml/hr (goal rate), Free Water Flush: 250 ml Q6h via GT Provides 1728 kcal/day, 108 gm protein/day, and 1917 ml free water/day Please see Nutritional f/u for details, thanks! CC, MPH, RDN
[2021-09-21] VITALS: BP_SYST 130
[2021-09-21] MEDS: KCL 40 mEq in D5W 1000 mL 1,000 ML IV SCH ×2 (00:41→22:12)
[2021-09-21] MEDS: MEROPENEM 1 GM in NS 100 ML IV SCH ×3 (06:17→21:54)
[2021-09-21 08:00] VITALS: BP_SYST 113
[2021-09-21 08:07] LABS: BASOPHILS % (AUTO) 0.6 % (0.0-2.0); EOSINOPHILS # (AUTO) 0.1 K/uL (0.0-0.4); EOSINOPHILS % (AUTO) 1.2 % (0.0-4.0); HEMATOCRIT 31.1 % (36-54); HEMOGLOBIN 10.4 g/dL (14.0-18.0); LYMPHOCYTES # (AUTO) 1.3 K/uL (1.0-5.5); LYMPHOCYTES % (AUTO) 22.2 % (20.5-51.5); MEAN CORPUSCULAR HEMOGLOBIN 29 pg (27-31); MEAN CORPUSCULAR HGB CONC 33 % (32-36); MEAN CORPUSCULAR VOLUME 86 fL (79.0-98.0); MONOCYTES # (AUTO) 0.4 K/uL (0.0-1.0); MONOCYTES % (AUTO) 6.4 % (1.7-9.3); NEUTROPHILS % (AUTO) 69.6 % (40.0-70.0); PLATELET COUNT (AUTO) 428 K/uL (130-430); RED BLOOD CELL COUNT(AUTO) 3.63 MIL/uL (4.2-6.2); WHITE BLOOD COUNT (AUTO) 5.8 K/uL (4.8-10.8)
--- NOTE | 2021-09-21 08:58 | NUR ---
Discharge Planning: KENNY followed up pt referral to [facility] [phone] per Janay pt accepted to Rm 125. KENNY made CM aware. Addendum: 09/21/21 at 1520 by Ramona TERRELL Shani at [facility] [phone] is following up on auth. KENNY hairston CM aware Addendum: 09/21/21 at 1529 by Ramona Phelps [facility] contracted with insurance is [facility] [phone]. KENNY will give Shani at [facility] [phone] nurse station number [phone]. Addendum: 09/21/21 at 1601 by Ramona TERRELL Per Shani at [facility] [phone], clinicals DCP faxed to [facility] [phone] at 11:37am was received and being reviewed. Pending auth
[2021-09-21] MEDS ORDERED: ZOLPIDEM TARTRATE 5 MG TABLET PO PRN (09:00)
[2021-09-21] MEDS ORDERED: MORPHINE 2 MG/ML INJ. SYRINGE IVP PRN ×2 (09:00)
[2021-09-21] MEDS ORDERED: LORazepam 2 MG/ML VIAL IVP PRN (09:00)
[2021-09-21] MEDS: LACTULOSE 20 GM/30 ML UDC GT SCH (09:31)
[2021-09-21] MEDS: MUPIROCIN 2% TOPICAL OINTMENT 22 GM NS SCH ×2 (09:31→21:56)
[2021-09-21] MEDS: VANCOMYCIN HCL 1,000 MG in NS 250 ML IV SCH ×2 (09:32→21:54)
[2021-09-21] MEDS: ENOXAPARIN SODIUM 40 MG/0.4 ML SYRINGE SUBCUT SCH (09:49)
[2021-09-21] MEDS: LevETIRAcetam 500 MG/5 ML UDC ORAL LIQUID GT SCH ×2 (10:04→21:54)
[2021-09-21 11:41] VITALS: BP_SYST 113
[2021-09-21 16:52] VITALS: BP_SYST 99
--- NOTE | 2021-09-21 20:00 | NUR ---
RECEIVED PT IN BED TRACH TO VENT GTUBE PATENT PT PLAN OF CARE REVIEWED AND ASSESSMENT COMPLETED PT OBTUNDENT TURNED AND REPOSITIONED FOR COMFORT WITH PILLOWS PT CONDITION GUARDED AT THIS TIME WILL CONTINUE TO MONITOR AND ASSESS
[2021-09-21 20:23] VITALS: BP_SYST 152
--- NOTE | 2021-09-22 | NUR ---
NO CHANGES NOTED FROM PREVIOUS ASSESSMENT, REPOSITIONED PER COMFORT, WILL CONTINUE TO MONITOR.
[2021-09-22 00:56] VITALS: BP_SYST 127
[2021-09-22] MEDS: MEROPENEM 1 GM in NS 100 ML IV SCH ×3 (05:10→21:22)
--- NOTE | 2021-09-22 06:00 | NUR ---
PT RESTING COMFORTABLE IN BED, NO S/S OF DISTRESS OR DISCOMFORT NOTED, AM CARE RENDERED TO PT, ORAL CARE DONE, TRACH SUCTIONED, CLEANED AND CHANGED, TUBE FEEDING STILL INFUSING AT ORDERED RATE, NO RESIDUAL NOTED THROUGHOUT THE SHIFT, PT TOLERATES FEEDING WELL, REPOSITIONED PER COMFORT, WILL CONTINUE TO MONITOR.
[2021-09-22 07:38] LABS: BASOPHILS % (AUTO) 0.7 % (0.0-2.0); EOSINOPHILS # (AUTO) 0.1 K/uL (0.0-0.4); EOSINOPHILS % (AUTO) 1.3 % (0.0-4.0); HEMATOCRIT 28.3 % (36-54); HEMOGLOBIN 9.9 g/dL (14.0-18.0); LYMPHOCYTES # (AUTO) 1.5 K/uL (1.0-5.5); LYMPHOCYTES % (AUTO) 29.4 % (20.5-51.5); MEAN CORPUSCULAR HEMOGLOBIN 29 pg (27-31); MEAN CORPUSCULAR HGB CONC 35 % (32-36); MEAN CORPUSCULAR VOLUME 83 fL (79.0-98.0); MONOCYTES # (AUTO) 0.3 K/uL (0.0-1.0); MONOCYTES % (AUTO) 5.8 % (1.7-9.3); NEUTROPHILS # (AUTO) 3.1 K/uL (1.8-7.7); NEUTROPHILS % (AUTO) 62.8 % (40.0-70.0); PLATELET COUNT (AUTO) 429 K/uL (130-430); RED CELL DISTRIBUTION WIDTH 15.1 % (9.0-15.0)
[2021-09-22 08:05] VITALS: BP_SYST 97
[2021-09-22] MEDS: ENOXAPARIN SODIUM 40 MG/0.4 ML SYRINGE SUBCUT SCH (08:39)
[2021-09-22] MEDS: LACTULOSE 20 GM/30 ML UDC GT SCH (08:40)
[2021-09-22] MEDS: MUPIROCIN 2% TOPICAL OINTMENT 22 GM NS SCH ×2 (08:40→21:22)
[2021-09-22] MEDS: LevETIRAcetam 500 MG/5 ML UDC ORAL LIQUID GT SCH ×2 (08:40→21:23)
[2021-09-22] MEDS: VANCOMYCIN HCL 1,000 MG in NS 250 ML IV SCH ×2 (10:01→22:24)
[2021-09-22] MEDS ORDERED: POTASSIUM CHLORIDE 40 MEQ in D5W 250 ML IV ONE (11:00)
[2021-09-22 12:00] VITALS: BP_SYST 102
--- NOTE | 2021-09-22 14:45 | NUR ---
WOUND EVALUATION: Late note for 1445 secondary to patient care. Wound Consult received from Dr. Levi. Thank you, Dr. Levi, for the consult. Patient received in a [place] Bed with a mattress, awake, alert, and oriented. Patient is unable to turn independently. Maicol Score is a . Past Medical History: Traumatic Brain Injury, Seizure disorder, bedbound. Chronic Dysphagia with G-tube, history of Respiratory Failure, Sacral ulcerations. Patient presented to ER with Intractable Fevers, Tachycardia, Desaturation, Acute Respiratory Failure, and Sepsis. Recent Labs: WBC 5.0, RBC 3.40, hemoglobin 9.9, hematocrit 28.3, potassium 3.3, chloride 109, BUN 11, creatinine 0.51, GFR 174, glucose 96, calcium 7.4, serum total protein 5.7, albumin 1.2. Microbiology: MRSA screen results positive. Endotracheal sputum culture results positive for E. coli (ESBL). Blood culture results x2 positive for MRSA. Second set of blood culture results in progress. Intrinsic factors that delay wound healing: Traumatic Brain Injury, acute/chronic respiratory failure sepsis, prior sacral-coccygeal wounds. Extrinsic factors that delay wound healing: Immobility. Wound Assessment: 1. Buttocks: sDTI present across bilateral buttocks, just inferior to Coccygeal area. Visible wound bed has 100% dull red tissue. Tissue surrounding open areas and in between open areas has dark, wrinkly skin. No odor, no drainage. Tyson-wound intact. Measures 5.0 cm x 9.0 cm. Recommend: Cleanse open sites with normal saline and soiled areas with mild soap and water. Apply moisture barrier cream to tyson-wounds. Apply Venelex ointment to open areas. Cover with Sacral foam dressing. Perform wound care daily, and as needed for dressing soiling or dislodgement. 2. Right Posterior Heel: Blanchable redness. Recommend: Cover bilateral heels with foam dressings for protection. Elevate, offload and float bilateral lower extremities with 1 pillow lengthwise and each extremity at all times. Do not allow heels to touch bed or other surfaces at any time. Also recommend: Reposition patient side to side only every 2 hours with pillow support and off-load pressure areas with pillows for pressure re-distribution. Offload, elevate and float bilateral heels with 1 pillow lengthwise in each extremity at all times. Perform skin care and monitor skin integrity Q shift. Use moisture barrier cream on buttocks and other moisture susceptible areas QID and as needed for soiling. Initiate low air-loss therapy by adding an air pump to mattress.
[2021-09-22] MEDS: KCL 40 mEq in D5W 1000 mL 1,000 ML IV SCH (15:15)
[2021-09-22 16:43] VITALS: BP_SYST 95
--- NOTE | 2021-09-22 18:19 | NUR ---
CLOSING NOTE: PT HAS BEEN STABLE THROUGHOUT THE DAY. PT READY FOR DC STILL AWAITING ARRANGEMENTS FOR DC TO SUBACUTE. NO RESPIRATORY DISTRESS ON MECHANICAL VENTILATOR, TOLERATING WELL. GT FEED NO RESIDUALS NOTED. WOUND CARE DONE. ALL CARE NEEDS MET. FALL/SAFETY/ISOLATION PRECAUTIONS. WILL ENDORSE CARE TO PM NURSE.
--- NOTE | 2021-09-22 19:15 | NUR ---
OPENING NOTE RECEIVED REPORT FROM DAYSHIFT NURSE. PATIENT RECEIVED LYING IN BED, EYES CLOSED, RESTING. NO S/S OF ACUTE DISTRESS. BREATHING EVEN AND UNLABORED, HOB RAISED, VENT TO TRACH ATTACHED AND OPERATING. IVF AND TUBE FEEDING INFUSING WELL. IV SITE PATENT, NO SIGNS OF INFILTRATION OR INFECTION NOTED. SEIZURE PADS ATTACHED TO SIDE RAIL. NGUYEN ATTACHED, SECURED, AND DRAINING BY GRAVITY. SAFETY, ISOLATION PRECAUTIONS IN PLACE. WILL CONTINUE TO MONITOR.
[2021-09-22 20:00] VITALS: BP_SYST 97
[2021-09-23 00:12] VITALS: BP_SYST 103
[2021-09-23] MEDS: MEROPENEM 1 GM in NS 100 ML IV SCH ×3 (05:01→20:39)
[2021-09-23] MEDS: KCL 40 mEq in D5W 1000 mL 1,000 ML IV SCH (05:02)
--- NOTE | 2021-09-23 06:39 | NUR ---
CLOSING NOTE PATIENT IN BED, EYES CLOSED, RESTING. NO S/S OF ACUTE DISTRESS. BREATHING EVEN AND UNLABORED. HOB RAISED. VENT TO TRACH ATTACHED AND OPERATING. IVF AND TUBE FEEDING INFUSING WELL. NGUYEN ATTACHED, SECURED, AND DRAINING BY GRAVITY. ALL NEEDS MET THROUGHOUT SHIFT. FALL, SAFETY PRECAUTIONS MAINTAINED THROUGHOUT SHIFT. WILL CONTINUE TO MONITOR UNTIL PATIENT IS ENDORSED TO ONCOMING DAYSHIFT NURSE.
[2021-09-23 08:08] VITALS: BP_SYST 106
--- NOTE | 2021-09-23 08:08 | NUR ---
INITIAL ROUNDS Received pt non-verbal, eyes closed, withdraws to touch. Contact isolation precautions in place for MRSA of the nares. Pt on vent via trach, vent settings verified. No s/s resp distress, no s/s pain or discomfort. IVF infusing well at ordered rate to MATTHEW PICC line with dressing clean, dry and intact. Vital AF infusing well at ordered rate with no residual noted. Pt repositioned with pillow support and heels off-loaded for skin care, noted dressing to buttocks. Side rails up x3, bed alarm on for safety.
[2021-09-23] MEDS: LACTULOSE 20 GM/30 ML UDC GT SCH (09:49)
[2021-09-23] MEDS: LevETIRAcetam 500 MG/5 ML UDC ORAL LIQUID GT SCH ×2 (09:49→20:33)
[2021-09-23] MEDS: BALSAM PERU/CASTOR OIL 56.7 GM OINT...G. TP SCH (09:49)
[2021-09-23] MEDS: MUPIROCIN 2% TOPICAL OINTMENT 22 GM NS SCH ×2 (09:50→20:32)
[2021-09-23] MEDS: ENOXAPARIN SODIUM 40 MG/0.4 ML SYRINGE SUBCUT SCH (09:50)
[2021-09-23] MEDS: VANCOMYCIN HCL 1,000 MG in NS 250 ML IV SCH ×2 (09:53→21:07)
[2021-09-23 12:45] VITALS: BP_SYST 110
--- NOTE | 2021-09-23 13:46 | NUR ---
Nutrition F/U Admitting Diagnosis Acute respiratory failure Reviewed Pertinent Medical/Surgical Hx Medical Record Medical History Comment: PMH: TBI, seizure disorder, bedbound, chronic dysphagia/GT, respiratory failure, and sacral ulcerations per physician notes Pt also found w/ sepsis, aspiration pneumonia, possible UTI, severe malnutrition, and lactic acidosis per physician notes Per RD chart review 09/16: pt is s/p tracheostomy 09/15 Subjective Information: RD rounded to pt's bedside and witnessed TF infusing as per physician order. Bedscale wt taken: 134#/61 kg -- closely c/w admission wt record. Spoke w/ primary RN who reported that pt had 0 ml GRV today and LBM was yesterday. She denied any s/s of intolerance to EN support. RD relayed new TF rec; RN acknowledged. Pt is not yet meeting new estimated nutritional needs. Current Diet Order/Nutrition Support: Vital AF 1.2 at 50 ml/hr (goal rate), Free Water Flush: 250 ml Q6h via GT x7 days Patient/Significant Other Unable To Verbalize Education Provided Not Indicated Pertinent Medications: Reviewed Pertinent Labs: Reviewed Height (Feet) 5 feet Height (Inches) 8.00 inches Weight (Pounds) 136 pounds -- stable since 09/13 Patient Weight 61.689 kg Body Mass Index 20.68 kg/m2 (normal) Usual Weight 165 lbs %UBW 82 %IBW 85 [place]/Adjusted Body Weight 160#/72.7 kg Recent Weight Change Yes - 29# wt loss/18% wt change within 4 mo Weight Status Appropriate Difficulty With: Chewing Swallowing Food Allergies NKFA Usual Diet At Home Continuous and bolus feeds over the span of 1.5 mo per daughter Skin Integrity Comment: Maicol scale: 10 -- coccyx skin tear; heel erythema NEW Estimated Energy Expenditure (kcals/day) 0841-3735 (30-35 kcal/kg IBW d/t chronic vent) Estimated Protein Required (g/day) 109-145 (1.5-2 gm/kg IBW d/t sepsis, critical illness, wt gain promotion) NEW Estimated Fluid Required (l/day) 2.2-2.5 (1 ml/kcal/day for maintenance) Problem/Etiology/Signs/Symptoms Inadequate oral intake r/t discontinued propofol a/e/b current TF regimen meets ~83% kcal and 82% lower range of protein needs. *New Increased nutritional needs R/T metabolic demands AEB estimated nutritional requirements for trach/vent. *Ongoing Risk for malnutrition R/T unintentional wt loss AEB 29# wt loss/18% wt change within 4 mo. *Ongoing Expected Outcomes/Goals - Monitor provision of EN support w/ goal of pt meeting >80% of estimated nutritional needs, labs trending WNL, normal GI function, and skin integrity/wt maintenance Dietitian Recommendations * Vital AF 1.2 at 80 ml/hr (goal rate), Free Water Flush: 250 ml Q6h via GT Provides: 2304 kcal/day, 144 gm protein/day, and 2557 ml free water/day Meets: 91% of upper end of estimated caloric needs, 99% of upper end of estimated protein needs, and 102% of upper end of estimated fluid needs Follow Up High Risk: F/U in 2-3 days
--- NOTE | 2021-09-23 13:52 | NUR ---
Dietitian Recommendations * Vital AF 1.2 at 80 ml/hr (goal rate), Free Water Flush: 250 ml Q6h via GT Provides: 2304 kcal/day, 144 gm protein/day, and 2557 ml free water/day Meets: 91% of upper end of estimated caloric needs, 99% of upper end of estimated protein needs, and 102% of upper end of estimated fluid needs LP, MS, RD Please refer to Nutrition F/U for details.
--- NOTE | 2021-09-23 16:00 | NUR ---
CM: late entry: NASEEM called Nelly Norborne several times through out the day but unable to get through. The phone had busy signals. The call was attempted by Sergio /NASEEM at [facility] as well, who tried to give authorization to Nelly Norborne.
--- NOTE | 2021-09-23 16:25 | NUR ---
WOUND CARE *Dressing to buttocks removed, area cleansed with normal saline, moisture barrier cream applied to periwound, Venelex ointment applied to wound bed and open areas, covered with a sacral foam dressing. . Wound bed is 100% red tissue, periwound intact. Wound measures 5.0 cm x 9.0 cm. Pt repositioned with pillow support and heels off-loaded for skin care and comfort. All precautions remain in place.
[2021-09-23 16:52] VITALS: BP_SYST 108
--- NOTE | 2021-09-23 18:52 | NUR ---
CLOSING NOTE Pt resting quietly in bed with no s/s resp distress, no s/s pain or discomfort. Contact isolation precautions maintained throughout shift. IVF infusing well at ordered rate to MATTHEW with no s/s infiltration to site. Vital AF infusing well at ordered rate. Curtis draining to gravity. Aspiration, skin and safety precautions remain in place.
[2021-09-23 20:00] VITALS: BP_SYST 97
[2021-09-23 23:45] VITALS: BP_SYST 107
[2021-09-24 04:00] VITALS: BP_SYST 146
[2021-09-24] MEDS: MEROPENEM 1 GM in NS 100 ML IV SCH ×3 (05:19→20:27)
[2021-09-24] MEDS: KCL 40 mEq in D5W 1000 mL 1,000 ML IV SCH ×3 (05:19→22:32)
--- NOTE | 2021-09-24 06:04 | NUR ---
PATIENT IS LYING COMFORTABLE ON BED. FLAT AFFECT. NO DISTRESS NOTED. VS STABLE. NGUYEN CATHETER IN PLACE DRAINING CLEAR YELLOW URINE TO DRAINAGE BAG. HAD ONE BIG SOFT MUSHY STOOL ON THIS SHIFT. GT INTACT AND PATENT. TUBE FEEDING INFUSING WELL. MINIMAL GT RESIDUALS NOTED. TRACH SITE INTACT AND STABLE. CONNECTED TO VENTILATOR WITH ORDERED SETTINGS. TOLERATED SETTING WELL. RT CLEANSED AND CHANGED THE DRESSING ON THE TRACH SITE. PICC TO MATTHEW INTACT AND PATENT RUNNING ORDERED IVF AT 60 CC/HR. NO S/S OF INFILTRATION NOTED. KEPT WARM AND COMFORTABLE ON BED. SAFETY AND FALL PRECAUTIONS INSTITUTED. ALL NEEDS ATTENDED. CALL LIGHT PLACED WITHIN REACH. MONITORED CLOSELY.
--- NOTE | 2021-09-24 08:30 | NUR ---
CM: Called [facility]: I am able to get through the phone line # [phone], per Trixie and Ramona stated the phone line was out of service all day yesterday. I requested to speak with Shani /Admission dept , informed to get auth from [place] [facility]. The insurance is ready to provide the admission auth. Addendum: 09/24/21 at 1310 by Boyd Yanes RN 1230: F/U with Ramona x2, due to no call back from Shani. I requested to speak with CURTIS Quiroz who would not taking my call. She had Jennifer tried to get Shani to respond to me first. Addendum: 09/24/21 at 1324 by Boyd Yanes RN Received call back from Shani, I informed [facility] is ready to give auth and to call naseem Hill/[facility] at [phone], and vice a versa provided Sergio with Shani ph # [phone]. NASEEM to follow up. Per Shani assigned pt to room 215 B but will take pt once got the confirmed authorization from [facility]. Per request, NASEEM faxed updated clinicals and dc order to Shani fax # [phone].
[2021-09-24] MEDS: VANCOMYCIN HCL 1,000 MG in NS 250 ML IV SCH ×2 (10:00→21:16)
[2021-09-24] MEDS: LACTULOSE 20 GM/30 ML UDC GT SCH (10:12)
[2021-09-24] MEDS: LevETIRAcetam 500 MG/5 ML UDC ORAL LIQUID GT SCH ×2 (10:14→20:26)
[2021-09-24] MEDS: MUPIROCIN 2% TOPICAL OINTMENT 22 GM NS SCH ×2 (10:15→20:30)
[2021-09-24] MEDS: BALSAM PERU/CASTOR OIL 56.7 GM OINT...G. TP SCH (10:17)
[2021-09-24] MEDS: ENOXAPARIN SODIUM 40 MG/0.4 ML SYRINGE SUBCUT SCH (10:18)
[2021-09-24 12:38] VITALS: BP_SYST 124
--- NOTE | 2021-09-24 15:49 | NUR ---
0730 HOUR- PATIENT ,RECEIVED OBTUNDED WITH TRACHEOSTOMY ,CONNECTED TO VENTILATOR ,TOLERATED WELL NO VENT. SETTING CHANGE.REPOSITION Q 2 HOURLY.
[2021-09-24 16:55] VITALS: BP_SYST 126
[2021-09-24 20:00] VITALS: BP_SYST 123
[2021-09-25 00:29] VITALS: BP_SYST 93
[2021-09-25 04:00] VITALS: BP_SYST 108
[2021-09-25] MEDS: MEROPENEM 1 GM in NS 100 ML IV SCH ×2 (05:46→13:42)
--- NOTE | 2021-09-25 05:59 | NUR ---
PATIENT IS CALM AND QUIET THE WHOLE NIGHT. REMAINS OBTUNDED AND FLAT AFFECT. ALSO REMAINS TRACH AND CONNECTED TO VENT WITH ORDERED SETTINGS. NO RESPIRATORY DISTRESS NOTED. SUCTIONED BY RT AND HE OBTAINED LARGE CLOUDY THICK SECRETIONS FROM THE TRACH AND MOUTH. TOLERATED WELL. NGUYEN CATHETER REMAINS INTACT AND DRAINING CLOUDY ALEXEY URINE TO DRAINAGE BAG. PICC LINE TO MATTHEW INTACT AND PATENT. DRAINING WITH ORDERED IVF WITH ADDITIVES AT 60 CC/HR. GT IN PLACE AND INTACT RUNNING ORDERED TUBE FEEDING AT 80 CC/HR. TOLERATED WELL. NOTED WITH MINIMAL RESIDUALS 5-10 CC. FLUSHED WITH 250 ML H2O Q6 HRS. DUE MEDS AND IV ATB GIVEN SCHEDULED. PLEASE SEE MAR. VOIDING AND STOOLED WELL. KEPT WARM AND COMFORTABLE. ALL NEEDS ATTENDED. CALL LIGHT PLACED WITHIN REACH SAFETY PRECAUTIONS OBSERVED. MONITORED CLOSELY.
--- NOTE | 2021-09-25 06:50 | NUR ---
DR. GUILLEN MADE ROUNDS AND ORDERED TO DISCONTINUE IVF AND ORDER STAT BMP. LABS ENTERED IN THE COMPUTER STAT AND IVF STOPPED. PATIENT CALM AND QUIET.
[2021-09-25 07:43] LABS: BASOPHILS % (AUTO) 0.2 % (0.0-2.0); EOSINOPHILS # (AUTO) 0.1 K/uL (0.0-0.4); EOSINOPHILS % (AUTO) 0.3 % (0.0-4.0); HEMATOCRIT 29.6 % (36-54); LYMPHOCYTES # (AUTO) 1.5 K/uL (1.0-5.5); LYMPHOCYTES % (AUTO) 6.3 % (20.5-51.5); MEAN CORPUSCULAR HEMOGLOBIN 29 pg (27-31); MEAN CORPUSCULAR HGB CONC 34 % (32-36); MEAN CORPUSCULAR VOLUME 86 fL (79.0-98.0); MONOCYTES # (AUTO) 0.8 K/uL (0.0-1.0); MONOCYTES % (AUTO) 3.3 % (1.7-9.3); NEUTROPHILS # (AUTO) 20.9 K/uL (1.8-7.7); PLATELET COUNT (AUTO) 469 K/uL (130-430); RED BLOOD CELL COUNT(AUTO) 3.45 MIL/uL (4.2-6.2); RED CELL DISTRIBUTION WIDTH 15.4 % (9.0-15.0); WHITE BLOOD COUNT (AUTO) 23.2 K/uL (4.8-10.8)
--- NOTE | 2021-09-25 07:52 | NUR ---
Report received from GIORGIO Mann for continuity of care. Patient stable condition. Resting in bed.
[2021-09-25] MEDS: LACTULOSE 20 GM/30 ML UDC GT SCH (09:00)
[2021-09-25 09:06] LABS: CALCIUM 7.6 mg/dL (8.4-11.0); CREATININE 0.45 mg/dL (0.55-1.30); POTASSIUM 3.5 mmol/L (3.5-5.1); TOTAL BILIRUBIN 0.5 mg/dL (0.0-1.0)
[2021-09-25 09:07] LABS: ALBUMIN 1.5 g/dL (3.4-4.8)
[2021-09-25] MEDS: ENOXAPARIN SODIUM 40 MG/0.4 ML SYRINGE SUBCUT SCH (09:52)
[2021-09-25] MEDS: MUPIROCIN 2% TOPICAL OINTMENT 22 GM NS SCH (09:53)
[2021-09-25] MEDS: BALSAM PERU/CASTOR OIL 56.7 GM OINT...G. TP SCH (09:54)
[2021-09-25] MEDS: VANCOMYCIN HCL 1,000 MG in NS 250 ML IV SCH (10:03)
[2021-09-25] MEDS: LevETIRAcetam 500 MG/5 ML UDC ORAL LIQUID GT SCH (10:21)
[2021-09-25 11:29] VITALS: BP_SYST 108
--- NOTE | 2021-09-25 12:36 | NUR ---
CM: Per Shani/[facility], received auth from [facility] ins. The pt can transfer any time to room 125 B, report # [phone]. Ambulance: Booked with Jorge Alberto at [facility] , CCT/RT for cone picker time at 2 pm. -- GIORGIO Land made aware. Dtr/Sruthi made aware and agreed with the transfer today. Call ref # [id number].
[2021-09-25 13:00] VITALS: BP_SYST 103
[2021-09-25 13:13] LABS: NEUTROPHILS % (AUTO) 89.9 % (40.0-70.0)
--- NOTE | 2021-09-25 14:14 | NUR ---
Report given to Paula RN for continuity of care at [facility]. Accepting physician is Dr. Sanchez. Patient aware of transportation. Still on Tele monitor. Will remove tele box when ambulance comes.
[2021-09-25 14:26] VITALS: BP_SYST 130
--- NOTE | 2021-09-25 14:36 | NUR ---
Reported to patient's daughter (Aster Reese) [phone] regarding patient being transferred to facility.
[2021-09-25 16:40] VITALS: BP_SYST 132
--- NOTE | 2021-09-27 08:24 | NUR ---
Dispo code 03
== END 2021-09-25 23:19 | DRG 5 ==
LOC: SED 03:08 → SIC 05:45 → STU 09-19 01:20
PROVIDERS: ADMIT General Practice; ATTEND General Practice
PROC: 5A1955Z Respiratory Ventilation, Greater than 96 Consecutive Hours (ICD-10-PCS; principal; 2021-09-12)
PROC: 0BH17EZ Insertion of Endotracheal Airway into Trachea, Via Natural or Artificial Opening (ICD-10-PCS; 2021-09-12)
PROC: 0BJ08ZZ Inspection of Tracheobronchial Tree, Via Natural or Artificial Opening Endoscopic (ICD-10-PCS; 2021-09-12)
PROC: 5A09357 Assistance with Respiratory Ventilation, Less than 24 Consecutive Hours, Continuous Positive Airway Pressure (ICD-10-PCS; 2021-09-12)
PROC: 05HY33Z Insertion of Infusion Device into Upper Vein, Percutaneous Approach (ICD-10-PCS; 2021-09-12)
PROC: 0B110F4 Bypass Trachea to Cutaneous with Tracheostomy Device, Open Approach (ICD-10-PCS; 2021-09-15)
DX: A41.9 Sepsis, unspecified organism (principal); R65.21 Severe sepsis with septic shock; J69.0 Pneumonitis due to inhalation of food and vomit; J96.20 Acute and chronic respiratory failure, unspecified whether with hypoxia or hypercapnia; G82.50 Quadriplegia, unspecified; G93.41 Metabolic encephalopathy; E43 Unspecified severe protein-calorie malnutrition; E87.2 Acidosis; R13.10 Dysphagia, unspecified; Z20.822 Contact with and (suspected) exposure to COVID-19; N39.0 Urinary tract infection, site not specified; G40.909 Epilepsy, unspecified, not intractable, without status epilepticus; E87.0 Hyperosmolality and hypernatremia; E87.6 Hypokalemia; E88.89 Other specified metabolic disorders; B95.62 Methicillin resistant Staphylococcus aureus infection as the cause of diseases classified elsewhere; B96.20 Unspecified Escherichia coli [E. coli] as the cause of diseases classified elsewhere; Z79.899 Other long term (current) drug therapy; Z99.11 Dependence on respirator [ventilator] status; Z87.820 Personal history of traumatic brain injury; Z74.01 Bed confinement status; Z68.20 Body mass index [BMI] 20.0-20.9, adult
CPT/HCPCS: 36415; 36600; 70450-TC; 70491-TC; 71045; 71275; 76376; 76536-TC; 80048; 80053; 80202; 81000; 82140; 82803-TC; 83036; 83605; 83735; 84484; 85007; 85025; 85027; 87040; 87070-TC; 87081; 87186-TC; 87205-TC; 93005; 93306; 94002; 94003; 94640; 94660; 94760; 96365; 96367; 96368; 96375; 99291; G0378; J0456; J0692; J1630; J1650; J1885; J1956; J2001; J2060; J2185; J2270; J2543; J2704; J3370; J3480; J3490; J7030; J7050; J7060; Q9967